=== PATIENT | male | born 1960 | race Caucasian/White ===

== ENCOUNTER 2019-05-23 10:23 | Emergency (ER) | payer MEDICAID ==
[~2019-05-23] VITALS: Ht 162.6 cm; Wt 90.3 kg
[2019-05-23] MEDS ORDERED: LYRICA 50 MG50 MG PO (10:37)
[2019-05-23] MEDS ORDERED: GLYBURIDE 5 MG T5 M1 PO (10:37)
[2019-05-23] MEDS ORDERED: INSULIN PEN (10:38)
[2019-05-23] MEDS ORDERED: FENOFIBRATE150 MG PO (10:38)
[2019-05-23 11:47] VITALS: BP 138/86
[2019-05-23] MEDS ORDERED: ZOFRAN ODT4 MG SUBLING (11:50)
[2019-05-23] MEDS ORDERED: FLEXERIL PO (11:50)
[2019-05-23] MEDS ORDERED: NORCO 5-325 TA1 EAC1 PO (11:50)
[2019-05-23] MEDS ORDERED: PREDNISONE 20 M20 M1 PO (11:50)
[2019-05-23] MEDS ORDERED: AUGMENTIN 875-1 EACH PO (11:50)
== END 2019-05-23 11:55 | disposition home or self-care (01) ==
LOC: M.ERS 10:23
DX: J06.9 Acute upper respiratory infection, unspecified (principal); M54.9 Dorsalgia, unspecified; L30.9 Dermatitis, unspecified; E11.9 Type 2 diabetes mellitus without complications; G89.29 Other chronic pain